=== PATIENT | female | born 1985 | race Hispanic/Latino ===

== ENCOUNTER 2019-02-24 21:31 | Inpatient (IN) | payer MEDICAID, OTHER ==
[~2019-02-24] VITALS: Ht 154.9 cm; Wt 70.8 kg
[2019-02-24 22:29] LABS: APPEARANCE,URINE Cloudy (CLEAR); BILIRUBIN,URINE Negative (NEGATIVE); COLOR,URINE Yellow (YELLOW); GLUCOSE, URINE (UA) Negative (NEGATIVE); KETONES,URINE 15 mg/dL (NEGATIVE); LEUKOCYTE ESTERASE ,URINE Large (NEGATIVE); NITRATE,URINE Negative (NEGATIVE); OCCULT BLOOD,URINE Trace (NEGATIVE); PH,URINE 6.5 (5.0-8.0); PROTEIN,URINE Trace mg/dL (NEGATIVE)
[2019-02-24 22:37] LABS: AMPHET/METH SCREEN,URINE NEGATIVE (NEGATIVE); BARBITURATE SCREEN, URINE NEGATIVE (NEGATIVE); BENZODIAZEPINES SCREEN,URINE NEGATIVE (NEGATIVE); CANNABINOID SCREEN,URINE NEGATIVE (NEGATIVE); COCAINE SCREEN,URINE NEGATIVE (NEGATIVE); OPIATE SCREEN,URINE NEGATIVE (NEGATIVE); PHENCYCLIDINE SCREEN,URINE NEGATIVE (NEGATIVE)
[2019-02-24 22:40] LABS: BACTERIA,URINE Moderate /HPF (None Seen); RBC,URINE 0-1 /HPF (0-1); SQUAMOUS EPITHELIAL CELL,UR Few /HPF (0-2)
[2019-02-24] MEDS ORDERED: LACTATED RINGERS 1000ML 1,000 ML IV PRN (23:01)
[2019-02-24] MEDS ORDERED: MEPERIDINE-PF 50 MG/ML SYG IVP PRN (23:15)
[2019-02-24] MEDS ORDERED: NALOXONE HCL 0.4 MG/1 ML ML IV PRN (23:15)
[2019-02-24] MEDS ORDERED: PROMETHAZINE HCL 25 MG/ML 1ML AMPULE IM PRN (23:15)
[2019-02-24] MEDS ORDERED: EPHEDRINE SULFATE 50 MG/ML AMPULE IVP PRN (23:15)
[2019-02-24] MEDS ORDERED: ROPIVACAINE 0.2% 100ML VIAL 100 ML EP PRN (23:15)
[2019-02-24] MEDS ORDERED: LACTATED RINGERS 500 ML 500 ML IV PRN (23:15)
[2019-02-25 00:08] LABS: HEMATOCRIT 34.4 % (36-48); MEAN CORPUSCULAR HEMOGLOBIN 30.4 pg (27.0-33.0); MEAN CORPUSCULAR VOLUME 89.4 fL (79-99); PLATELET COUNT (AUTO) 348 K/uL (130-400); RED BLOOD CELL COUNT(AUTO) 3.85 MIL/uL (4.00-5.50); RED CELL DISTRIBUTION WIDTH 14.1 % (11.0-15.5); WHITE BLOOD COUNT (AUTO) 6.8 K/uL (4.8-10.8)
[2019-02-25] MEDS ORDERED: OXYTOCIN 10 USP UNITS/ML 20 UNIT in LACTATED RINGERS 1000ML 1,000 ML IV SCH (08:30)
[2019-02-25] MEDS ORDERED: OXYTOCIN-LR 20 UNITS/1000 ML 1,000 ML IV SCH (08:45)
[2019-02-25] MEDS ORDERED: WITCH HAZEL 1 PAD TP PRN (13:15)
[2019-02-25] MEDS ORDERED: ACETAMINOPHEN 325 MG TAB PO PRN (13:15)
[2019-02-25] MEDS ORDERED: DIPH,PERTUSS(ACELL),TET VAC/PF 0.5 ML VIAL IM PRN (13:15)
[2019-02-25] MEDS ORDERED: IBUPROFEN 600 MG TABLET PO PRN (13:15)
[2019-02-25] MEDS ORDERED: LANOLIN 30GM OINTMENT TP PRN (13:15)
[2019-02-25] MEDS ORDERED: MEASLES/MUMPS/RUBELLA VACCINE, LIVE 0.5 ML/VIAL SQ PRN (13:15)
[2019-02-25] MEDS ORDERED: BENZOCAINE/LANOLIN/ALOE VERA 60 ML AEROSOL TP PRN (13:15)
[2019-02-25 16:17] VITALS: BP 111/65
[2019-02-25 18:57] VITALS: BP 119/71
[2019-02-25 20:00] VITALS: BP 109/72
[2019-02-25] MEDS: DOCUSATE SODIUM 100 MG CAP PO SCH (20:48)
[2019-02-25 23:48] VITALS: BP 107/61
[2019-02-26 03:49] VITALS: BP 119/74
[2019-02-26 07:30] VITALS: BP 111/72
[2019-02-26] MEDS: DOCUSATE SODIUM 100 MG CAP PO SCH (09:00)
[2019-02-26 10:20] VITALS: BP 111/67
[2019-02-26 12:38] VITALS: BP 111/63
--- NOTE | 2019-02-26 12:41 | NUR ---
DISCHARGE DISCHARGE INSTRUCTIONS REVIEWED WITH PT, APPT DATE AND TIME REVIEWED WITH PT, QUESTIONS INVITED AND ANSWERED. AWAITING FOR DISCHARGE FROM [facility]. CALL [facility] WITHIN REACH.
--- NOTE | 2019-02-26 14:14 | NUR ---
DISCHARGE DISCHARGED HOME VIA WHEELCHAIR, INFANT IN ARMS, DEPARTED PER PRIVATE VEHICLE WITH FAMILY MEMBER PRESENT.
[2019-02-27 05:15] LABS: HEPATITIS Bs ANTIGEN SCREEN P Negative (Negative)
== END 2019-02-26 14:16 | disposition home or self-care (01) | DRG 807 ==
LOC: EDH 21:31 → UNDOADMOB 22:02 → OBSVTOIN 22:02 → LDH 22:02 → WSH 02-25 15:42
PROVIDERS: ADMIT Obstetrics & Gynecology; ATTEND Obstetrics & Gynecology
PROC: 10E0XZZ Delivery of Products of Conception, External Approach (ICD-10-PCS; principal; 2019-02-24)
PROC: 3E0234Z Introduction of Serum, Toxoid and Vaccine into Muscle, Percutaneous Approach (ICD-10-PCS; 2019-02-24)
PROC: 3E0134Z Introduction of Serum, Toxoid and Vaccine into Subcutaneous Tissue, Percutaneous Approach (ICD-10-PCS; 2019-02-24)
DX: O80 Encounter for full-term uncomplicated delivery (principal); Z37.0 Single live birth; Z3A.40 40 weeks gestation of pregnancy; Z23 Encounter for immunization
CPT/HCPCS: 36415; 80305; 81001; 85027; 86592; 86701; 86850; 86900; 86901; 87340; 87390; A4351; G0378; J2590